=== PATIENT | female | born 1975 | race Caucasian/White ===

== ENCOUNTER 2024-01-12 01:37 | Emergency (ER) | payer OTHER ==
[2024-01-12 01:47] VITALS: RESP 18; TEMP 97.8; BMI 31.4
[2024-01-12] MEDS ORDERED: METOCLOPRAMIDE HCL INJECTION 10 MG/2 ML VIAL ONE (02:53)
[2024-01-12] MEDS ORDERED: ACETAMINOPHEN INJECTION 100 ML ONE (02:53)
[2024-01-12 03:06] VITALS: BP 138/82; PULSE 94
[2024-01-12] MEDS: ACETAMINOPHEN 1000 MG/100 ML BAG IVPB ONE (03:17)
[2024-01-12] MEDS: METOCLOPRAMIDE HCL INJECTION 10 MG/2 ML VIAL IVPB ONE (03:17)
== END 2024-01-12 05:26 | disposition home or self-care (01) ==
LOC: JER 01:37
PROC: 3E033NZ Introduction of Analgesics, Hypnotics, Sedatives into Peripheral Vein, Percutaneous Approach (ICD-10-PCS; principal; 2024-01-12)
PROC: 3E033GC Introduction of Other Therapeutic Substance into Peripheral Vein, Percutaneous Approach (ICD-10-PCS; 2024-01-12)
DX: R51.9 Headache, unspecified (principal); G89.29 Other chronic pain; H53.8 Other visual disturbances
CPT/HCPCS: 70450-TC; 96374; 96375; 99284-25; J0131